=== PATIENT | male | born 1940 | race Caucasian/White ===

== ENCOUNTER → 2019-11-22 08:28 | Outpatient (REF) | payer MEDICARE, BC, SELFPAY | LOC: ANHLAB 08:28 | PROVIDERS: PCP Internal Medicine; Visit Provider Nurse Practitioner Family | DX: C44.319 Basal cell carcinoma of skin of other parts of face (principal); C44.41 Basal cell carcinoma of skin of scalp and neck | CPT/HCPCS: 88305; 88331 ==

== ENCOUNTER 2021-01-22 08:55 | Emergency (ER) | payer MEDICARE, BC, SELFPAY ==
--- NOTE | ~2021-01-22 | CT_ITS ---
EXAMINATION: CT abdomen pelvis w con DATE: 01/22/2021 10:19 INDICATION: Lower abdominal pain. TECHNIQUE: Computed tomography (CT) of the abdomen and pelvis was performed with 100 mL Omnipaque 350 intravenous contrast. Automated exposure control and iterative reconstruction technique were employe d. The dose-length product was 585.76 mGy-cm. COMPARISON: None. FINDINGS: The visualized portions of the lung bases demonstrate mild atelectasis. No pleural effusion . The heart size is normal. There are coronary artery calcifications. There are calcifications of aor tic valve. No pericardial effusion. The liver, gallbladder, spleen, pancreas, and adrenal glands are normal. There is cortical thinning of the kidneys. The prostate is mildly enlarged. There are likely changes of transurethral resection of the prostate. The bladder is distended. There is mild bladder w all thickening, likely secondary to chronic outlet obstruction. Stool distends the rectum. There is d iverticulosis of the colon without evidence of diverticulitis. The appendix is normal. There are no p athologically enlarged lymph nodes. There is no free intraperitoneal fluid. There is a left inguinal hernia containing fat. There are changes of anterior and posterior fusion procedures from L3 to L5. T here is severe lower thoracic spondylosis and moderate lumbar spondylosis. IMPRESSION: 1. Stool distends the rectum. 2. Left inguinal hernia containing fat. Reviewed, dictated and finalized at location A.
[2021-01-22 09:04] VITALS: BP 178/100; PULSE 66; RESP 13; TEMP 36.1; O2SAT 98
--- NOTE | 2021-01-22 09:18 | ECG_ITS ---
Measurements Intervals [place] Rate: 60 P: 59 CT: 213 QRS: -41 QRSD: 129 T: 11 QT: 458 QTc: 461 Interpretive Statements SINUS RHYTHM WITH FIRST DEGREE AV BLOCK LEFT AXIS DEVIATION RIGHT BUNDLE BRANCH BLOCK VOLTAGE CRITERIA FOR LVH MINIMAL Q WAVES- HIGH LATERAL LEADS BASELINE ARTIFACT- I, III, AVL ABNORMAL ECG Electronically Signed On 01-22-2021 9:26:30 CDT by Ivan Dela Cruz D.O.
[2021-01-22 09:30] VITALS: BP 174/94; PULSE 57; RESP 17; O2SAT 98
[2021-01-22 09:35] LABS: Basophils Absolute Auto 0.1 K/mm3 (0.0-0.1); Basophils Percent Auto 0.7 % (0.2-1.2); Eosinophils Absolute Auto 0.4 K/mm3 (0-0.3); Eosinophils Percent Auto 3.8 % (0-4.4); Hematocrit 41.9 % (42.0-52.0); Hemoglobin 13.9 g/dL (14.0-18.0); Immature Granulocyte Absolute 0.03 K/mm3 (0.00-0.031); Immature Granulocyte Percent A 0.3 % (0-0.5); Lymphocytes Absolute Auto 1.76 K/mm3 (0.9-3.2); Lymphocytes Percent Auto 18.7 % (18.3-44.2); Mean Corpuscular HGB Conc 33.2 g/dl (32-36); Mean Corpuscular Hemoglobin 29.1 pg (26-34); Mean Corpuscular Volume 87.7 fl (80-100); Mean Platelet Volume 9.5 fl (7.4-10.4); Monocytes Absolute Auto 0.7 K/mm3 (0.1-0.6); Monocytes Percent Auto 7.7 % (2.6-8.5); Neutrophils Absolute Auto 6.5 K/mm3 (1.3-6.7); Neutrophils Percent Auto 68.8 % (45.5-73.1); Platelet Count Result 223 k/mm3 (150-375); Red Blood Count 4.78 M/mm3 (4.6-6.20); Red Cell Distribution Width 13.7 % (11.5-14.5); White Blood Count 9.4 K/mm3 (4.5-10.0)
--- NOTE | 2021-01-22 09:38 | ED.ABDPAIN ---
HPI - Abdominal Pain General Chief Complaint: Abdominal Pain Stated Complaint: abd pain Time Seen by Provider: 01/22/21 09:06 Source: family, RN notes reviewed and old records reviewed Mode of arrival: wheelchair Limitations: dementia History of Present Illness HPI narrative: This is an 80 year old male with vascular dementia, hyperlipidemia, CVA (hemorrhagic) who presents from home with for evaluation of abdominal pain. Patient is unable to provide history due to his severe dementia. His states today patient woke up holding his stomach. He told her his stomach hurt. He is unable to provide any other history about the pain. She states he did not have any pain or issues yesterday. She reports he has not eaten today. His last bowel movement was last week. He has not had vomiting , fever or diarrhea. Related Data Home Medications Medication Instructions Recorded Confirmed amlodipine 10 mg tablet 10 mg PO DAILY 11/22/19 atorvastatin 10 mg tablet 10 mg PO DAILY 11/22/19 duloxetine 60 mg capsule,delayed 60 mg PO DAILY 11/22/19 release lansoprazole 15 mg capsule,delayed 15 mg PO DAILY 11/22/19 release metformin 1,000 mg tablet 1,000 mg PO DAILY 11/22/19 mirabegron 50 mg tablet,extended 50 mg PO DAILY 11/22/19 release 24 hr multivitamin 1 tablet PO DAILY 11/22/19 nebivolol 5 mg tablet 5 mg PO DAILY 11/22/19 pregabalin 50 mg capsule 50 mg PO BID 11/22/19 saxagliptin 5 mg tablet 5 mg PO DAILY 11/22/19 vit [id number] factor-folic tablet PO 11/22/19 acid cmb#2 500 mcg-20 mg-800 mcg tablet Allergies Allergy/AdvReac Type Severity Reaction Status Date / Time aspirin Allergy Other Verified 11/29/19 13:29 Review of Systems Review of Systems: ROS unobtainable: Yes unobtainable due to medical condition (vascular dementia) [facility] Past Medical History Medical History (Updated 01/22/21 @ 15:57 by Jen Burt MD) Dementia Diabetes Enlarged prostate Hemorrhagic cerebrovascular accident (CVA) History of basal cell carcinoma (BCC) Hypertension Surgical History Surgical History (Updated 01/22/21 @ 15:58 by Jen Burt MD) H/O brain surgery History of ankle surgery History of back surgery back fusion Family History Family History Mother Cancer Social History Social History (Updated 01/22/21 @ 15:57 by Jen Burt MD) Smoking status: Former smoker Exam Const: General: no acute distress and alert Other: oriented to self Resp: Effort & Inspection: normal respiratory effort and no retractions Cardio: Rate: regular rate Heart sounds: no murmurs GI: GI Palp: Yes Soft to palpation, No Tenderness to palpation present (GI) and No Guarding due to palpation present (GI) Auscultation: normal bowel sounds Rectal Exam: normal sphincter tone Other: no hemorrhoids, soft stool in rectal vault. Neuro: General: moves all extremities and no meningeal signs Psych: Mental Status: mental status grossly normal Affect: normal affect Course Reevaluation(s) Reevaluation #1: I Discussed with patient's that he was found to have a UTI. His stool is soft. His will given him an enema at home. He does not appear to be at home Date: 01/22/21 Time: 11:36 Vital Signs Vital signs: Vital Signs Temperature 97.0 F L 01/22/21 09:04 Pulse Rate 66 01/22/21 09:04 Respiratory Rate 13 01/22/21 09:04 Blood Pressure 178/100 H 01/22/21 09:04 Pulse Oximetry 98 01/22/21 09:04 Temperature 97.0 F L 01/22/21 09:04 Pulse Rate 56 L 01/22/21 12:01 Respiratory Rate 18 01/22/21 12:01 Blood Pressure 170/91 H 01/22/21 12:01 Pulse Oximetry 96 01/22/21 12:01 MDM - Abdominal Pain Medical Records Attestation: I reviewed the patient's medical records. Lab Data Attestation: I reviewed the patient's lab results. Result diagrams: 01/22/21 09:27 01/22/21 09:27
[2021-01-22 09:47] LABS: Alanine Aminotransferase 14 U/L (4-50); Albumin Level 4.2 g/dL (3.5-5.1); Alkaline Phosphatase 72 U/L (38-126); Anion Gap 7 mmol/L (8-16); Aspartate Amino Transferase 25 U/L (17-59); Bilirubin,Total 0.7 mg/dL (0.2-1.3); Blood Urea Nitrogen 31 mg/dL (9-20); Calcium 9.5 mg/dL (8.4-10.2); Carbon Dioxide 32 mmol/L (22-30); Chloride 103 mmol/L (98-107); Estimated CRCL calculation 34 ml/min; Estimated Glomerular Filt Rate 49; Glucose 109 mg/dL (75-110); Lipase 80 U/L (23-300); Potassium 3.6 mmol/L (3.4-5.0); Sodium 142 mmol/L (137-145)
[2021-01-22 10:18] LABS: Add Urine Microscopic? YES; Appearance Urine Cloudy (Clear); Bacteria Urine Trace /hpf; Bilirubin Urine Negative (Negative); Blood Urine Negative (Negative); Budding Yeast Urine Present /hpf; Color Urine Yellow (Yellow); Glucose Urine UA Negative (Negative); Ketones Urine Negative (Negative); Leukocyte Esterase Ur 3+ LEU/UL (Negative); Mucus Urine Rare /lpf; Nitrate Urine Negative (Negative); Protein Urine Negative (Negative); Specific Grav Ur 1.012 (1.001-1.035); Squamous Epithelial Cell Urine Occasional /hpf (Few); Urobilinogen Urine Negative mg/dL (<2.0); WBC Clumps Urine Present /HPF; WBC Urine >75 /hpf
[2021-01-22 10:21] VITALS: BP 162/70; PULSE 63; RESP 18; O2SAT 97
[2021-01-22 12:01] VITALS: BP 170/91; PULSE 56; RESP 18; O2SAT 96
== END 2021-01-22 12:24 | disposition home or self-care (01) ==
PROVIDERS: Emergency Provider General Practice; PCP Internal Medicine
DX: N39.0 Urinary tract infection, site not specified (principal); F01.50 Vascular dementia, unspecified severity, without behavioral disturbance, psychotic disturbance, mood disturbance, and anxiety; I69.919 Unspecified symptoms and signs involving cognitive functions following unspecified cerebrovascular disease; E78.5 Hyperlipidemia, unspecified; N40.0 Benign prostatic hyperplasia without lower urinary tract symptoms; E11.9 Type 2 diabetes mellitus without complications; I10 Essential (primary) hypertension; Z85.828 Personal history of other malignant neoplasm of skin; Z79.84 Long term (current) use of oral hypoglycemic drugs; Z87.891 Personal history of nicotine dependence; K40.90 Unilateral inguinal hernia, without obstruction or gangrene, not specified as recurrent; I44.0 Atrioventricular block, first degree; I45.10 Unspecified right bundle-branch block; R94.31 Abnormal electrocardiogram [ECG] [EKG]
CPT/HCPCS: 36415; 51701; 74177; 80053; 81001; 83690; 85025; 87077; 87086; 87088; 87186; 93005; 96374; 99284; J0696; Q9967

== ENCOUNTER 2021-12-17 12:45 | Outpatient (CLI) | payer MEDICARE, BC, SELFPAY ==
[2021-12-17 13:24] LABS: Hemoglobin A1C 6.1 % (<5.7)
[2021-12-17 13:30] LABS: Albumin Level 4.3 g/dL (3.5-5.1); Alkaline Phosphatase 83 U/L (38-126); Anion Gap 14 mmol/L (8-16); Aspartate Amino Transferase 25 U/L (17-59); Bilirubin,Total 0.6 mg/dL (0.2-1.3); Blood Urea Nitrogen 24 mg/dL (9-20); Calcium 9.1 mg/dL (8.4-10.2); Carbon Dioxide 27 mmol/L (22-30); Chloride 98 mmol/L (98-107); Estimated Glomerular Filt Rate 45; Glucose 124 mg/dL (65-110); Potassium 3.3 mmol/L (3.4-5.0); Sodium 139 mmol/L (137-145)
[2021-12-17 13:43] LABS: Alanine Aminotransferase 13 U/L (4-50)
== END 2021-12-17 12:46 | disposition home or self-care (01) ==
PROVIDERS: PCP Internal Medicine; Visit Provider Internal Medicine
DX: I12.9 Hypertensive chronic kidney disease with stage 1 through stage 4 chronic kidney disease, or unspecified chronic kidney disease (principal); N18.31 Chronic kidney disease, stage 3a; E11.22 Type 2 diabetes mellitus with diabetic chronic kidney disease
CPT/HCPCS: 36415; 80053; 83036